=== PATIENT | male | born 1990 | race Two or more races ===

== ENCOUNTER 2021-10-03 13:00 | Emergency (ER) | payer SELFPAY ==
[~2021-10-03] VITALS: Ht 175.3 cm; Wt 77.1 kg
[2021-10-03 15:30] VITALS: BP 144/81
[2021-10-03] MEDS ORDERED: NAPR500T31 PO (15:46)
[2021-10-03] MEDS ORDERED: CEPH-509 PO (15:46)
== END 2021-10-03 15:51 | disposition home or self-care (01) ==
LOC: ER 13:00
DX: T24.202D Burn of second degree of unspecified site of left lower limb, except ankle and foot, subsequent encounter (principal); F12.10 Cannabis abuse, uncomplicated; X58.XXXD Exposure to other specified factors, subsequent encounter